=== PATIENT | female | born 1995 | race Two or more races ===

== ENCOUNTER → 2023-07-15 | Outpatient (CLI) | payer OTHER ==
[2023-07-15 13:36] LABS: HEMATOCRIT 37.8 % (36.0-47.0); HEMOGLOBIN 12.5 g/dl (12.0-15.5); MEAN CORPUSCULAR HEMOGLOBIN 30.3 pg (27.0-33.0); MEAN CORPUSCULAR HGB CONC 33.1 g/dl (32.0-36.5); MEAN CORPUSCULAR VOLUME 91.7 fl (80.0-96.0); PLATELET COUNT, AUTOMATED 288 10^3/uL (150-450); RED BLOOD COUNT 4.12 10^6/uL (4.00-5.40); WHITE BLOOD COUNT 14.4 10^3/uL (4.0-10.0)
[2023-07-15 14:33] LABS: HIV 1&2 SCREEN NEGATIVE (NEGATIVE)
[2023-07-15 14:42] LABS: HEPATITIS C VIRUS ABY INDEX 0.04 INDEX (<0.8)
[2023-07-15 15:38] LABS: GC DNA AMPLIFICATION NEGATIVE (NEGATIVE)
== END ==
LOC: M PLALAB 10:59
PROVIDERS: ATTEND Advanced Practice Midwife
DX: Z36.9 Encounter for antenatal screening, unspecified (principal)

== ENCOUNTER → 2023-10-07 | Outpatient (CLI) | payer OTHER | LOC: M WHC 13:39 | PROVIDERS: ATTEND Specialist | DX: Z34.82 Encounter for supervision of other normal pregnancy, second trimester (principal); Z3A.20 20 weeks gestation of pregnancy ==

== ENCOUNTER → 2023-11-11 | Outpatient (CLI) | payer OTHER ==
[2023-11-11 14:15] LABS: HEMOGLOBIN 11.5 g/dl (12.0-15.5); MEAN CORPUSCULAR HEMOGLOBIN 30.7 pg (27.0-33.0); MEAN CORPUSCULAR HGB CONC 32.9 g/dl (32.0-36.5); MEAN CORPUSCULAR VOLUME 93.6 fl (80.0-96.0); PLATELET COUNT, AUTOMATED 252 10^3/uL (150-450); RED BLOOD COUNT 3.74 10^6/uL (4.00-5.40); WHITE BLOOD COUNT 12.2 10^3/uL (4.0-10.0)
== END ==
LOC: M PLALAB 09:38
PROVIDERS: ATTEND Advanced Practice Midwife
DX: Z34.82 Encounter for supervision of other normal pregnancy, second trimester (principal); Z3A.00 Weeks of gestation of pregnancy not specified

== ENCOUNTER → 2024-01-20 | Outpatient (REF) | payer OTHER | LOC: M SFHCWAGY 12:19 | PROVIDERS: ATTEND Specialist | DX: Z34.83 Encounter for supervision of other normal pregnancy, third trimester (principal); Z3A.00 Weeks of gestation of pregnancy not specified ==

== ENCOUNTER 2024-02-20 08:43 | Inpatient (IN) | payer OTHER ==
[2024-02-20] VITALS (29 sets, daily range): BP systolic 91–149; BP diastolic 50–92; O2SAT 98
[~2024-02-20] VITALS: Ht 157.5 cm; Wt 99.5 kg
[2024-02-20] MEDS ORDERED: PRENTAB9 PO (09:08)
[2024-02-20 09:52] LABS: HEMOGLOBIN 12.2 g/dl (12.0-15.5); MEAN CORPUSCULAR HGB CONC 33.9 g/dl (32.0-36.5); MEAN CORPUSCULAR VOLUME 91.4 fl (80.0-96.0); PLATELET COUNT, AUTOMATED 223 10^3/uL (150-450); RED BLOOD COUNT 3.94 10^6/uL (4.00-5.40); WHITE BLOOD COUNT 10.5 10^3/uL (4.0-10.0)
[2024-02-20] MEDS ORDERED: TRANEXAMIC ACID INJection 1,000 MG in NS 100 ML IV PRN (10:35)
[2024-02-20] MEDS ORDERED: OXYTOCIN DRIP 30 UNITS in IV 1 EA IV PRN (10:35)
[2024-02-20] MEDS ORDERED: LACTATED RINGER'S 1000 ML IV PRN (10:35)
[2024-02-20] MEDS ORDERED: CARBOPROST TROMETHAMINE 250 MCG/ML AMP IM PRN (10:35)
[2024-02-20] MEDS ORDERED: METHYLERGONOVINE MALEATE 0.2MG/ML 1ML VIAL IM PRN (10:35)
[2024-02-20 10:50] LABS: HEPATITIS C VIRUS ABY INDEX 0.03 INDEX (<0.8)
[2024-02-20] MEDS: LR 1,000 ML IV SCH (11:04)
[2024-02-20] MEDS: OXYTOCIN DRIP 30 UNITS in IV 1 EA IV SCH (11:05)
[2024-02-20] MEDS ORDERED: LR 500 ML IV PRN (13:50)
[2024-02-20] MEDS ORDERED: ePHEDrine SULFATE 25 MG/5 ML(5MG/ML) SYRINGE IVP PRN (13:50)
[2024-02-20] MEDS ORDERED: NALOXONE INJ 0.4MG/1ML VIAL IV PRN (13:50)
[2024-02-20] MEDS ORDERED: ONDANSETRON 4MG 2ML VIAL IV PRN (13:50)
[2024-02-20] MEDS ORDERED: EPIDURAL/PCA KEYS XX PRN (13:50)
[2024-02-20] MEDS: FENTANYL/ROPIVACAINE/NACL BAG 100 ML EPIDURAL SCH (14:30)
[2024-02-20] MEDS ORDERED: METHYLERGONOVINE MALEATE 0.2 MG TAB PO PRN (17:40)
[2024-02-20] MEDS ORDERED: DIBUCAINE 1% OINTMENT 30GM TOP PRN (17:40)
[2024-02-20] MEDS ORDERED: RHO(D) IMMUNE GLOBULIN/MALTOSE 500MCG(2500IU)/2.2ML VIAL (WINRHO) IM SCH (17:40)
[2024-02-20] MEDS ORDERED: diphenhydrAMINE 50MG/ML VIAL As Ordered ONE (17:57)
[2024-02-20] MEDS: diphenhydrAMINE 50MG/ML VIAL IV PRN (17:59)
[2024-02-21] MEDS: DOCUSATE SODIUM 100MG CAPSULE PO PRN (02:14)
[2024-02-21] MEDS: IBUPROFEN 600MG TAB PO PRN (05:19)
[2024-02-21 06:00] VITALS: BP 108/53; O2SAT 96
[2024-02-21] MEDS: ACETAMINOPHEN 500 MG TAB PO PRN (07:50)
[2024-02-21] MEDS: PRENATAL VITAMINS CHEWABLE TABLET PO SCH (09:44)
[2024-02-21 09:54] LABS: HEMATOCRIT 37.5 % (36.0-47.0); HEMOGLOBIN 12.3 g/dl (12.0-15.5); MEAN CORPUSCULAR HEMOGLOBIN 30.3 pg (27.0-33.0); MEAN CORPUSCULAR HGB CONC 32.8 g/dl (32.0-36.5); MEAN CORPUSCULAR VOLUME 92.4 fl (80.0-96.0); PLATELET COUNT, AUTOMATED 199 10^3/uL (150-450); RED BLOOD COUNT 4.06 10^6/uL (4.00-5.40); WHITE BLOOD COUNT 11.3 10^3/uL (4.0-10.0)
[2024-02-21 18:00] VITALS: BP 120/65; O2SAT 98
[2024-02-22 06:00] VITALS: BP 138/73; O2SAT 96
[2024-02-22] MEDS ORDERED: MEASLES,MUMPS,RUBELLA VACCINE INJ (MMR-II) SC.IMMUN ONE (09:00)
[2024-02-22] MEDS ORDERED: ACET-683 PO (10:41)
[2024-02-22] MEDS ORDERED: IBUP-1022 PO (10:41)
== END 2024-02-22 13:00 | disposition home or self-care (01) | DRG 807 ==
LOC: M LDI 08:43 → M OBS 19:20
PROVIDERS: ADMIT Obstetrics & Gynecology; ATTEND Obstetrics & Gynecology
PROC: 10E0XZZ Delivery of Products of Conception, External Approach (ICD-10-PCS; principal; 2024-02-20)
PROC: 10907ZC Drainage of Amniotic Fluid, Therapeutic from Products of Conception, Via Natural or Artificial Opening (ICD-10-PCS; 2024-02-20)
PROC: 3E033VJ Introduction of Other Hormone into Peripheral Vein, Percutaneous Approach (ICD-10-PCS; 2024-02-20)
DX: O80 Encounter for full-term uncomplicated delivery (principal); Z37.0 Single live birth; Z3A.40 40 weeks gestation of pregnancy